=== PATIENT | female | born 2000 | race Hispanic/Latino ===

== ENCOUNTER 2025-05-27 15:12 | Day surgery (SDC) | payer OTHER ==
[~2025-05-27 15:12] MED LIST: Bupivacaine HCl 0.5%/Epinephrine 1:200,000/PF 30 ml Vial ONE
[2025-05-27] MEDS ORDERED: hydrALAZINE 20 MG/ML VIAL SLOW IVP PRN (15:29)
[2025-05-27] MEDS ORDERED: Ondansetron PF 4 MG/2 ML Vial IVP PRN ×2 (15:29→18:14)
[2025-05-27] MEDS ORDERED: Oxytocin 30 units/NS 500 ML 500 ML IV SCH (15:30)
[2025-05-27 16:05] VITALS: BMI 25.8
[2025-05-27 16:34] LABS: Hematocrit 34.6 % (34.9-44.5); Hemoglobin 12.0 g/dL (12.0-15.5); Mean Corpuscular Hemoglobin 30.4 pg (27.0-33.0); Mean Corpuscular Volume 87.6 fL (81.6-98.3); Platelet Count 306 10x3/uL (150-450); Red Blood Cell (RBC) Count 3.95 10x6/uL (3.90-5.03); White Blood Cell (WBC) Count 8.24 10x3/uL (3.5-10.5)
[2025-05-27 17:11] LABS: Hep B Surf Ag - L&D Non-Reactive S/CO (NonReactive)
[2025-05-27 17:12] LABS: Syphilis Antibody Index 0.05 S/CO (<1.00 Non-Reactive)
[2025-05-27] MEDS ORDERED: Lidocaine 2% MPF 10 ML AMP (For Epidural Use) ONE (17:52)
[2025-05-27] MEDS ORDERED: diphenhydrAMINE 50 MG/ML VIAL IVP PRN (18:14)
[2025-05-27] MEDS ORDERED: Acetaminophen 325 MG TAB PO PRN (18:14)
[2025-05-27] MEDS ORDERED: Communication Order-Pharmacy FS SCH (18:15)
== END 2025-05-27 23:10 | disposition home or self-care (01) ==
LOC: CSHLD/OP 15:12
PROVIDERS: ATTEND Family Medicine
PROC: 10S0XZZ Reposition Products of Conception, External Approach (ICD-10-PCS; principal; 2025-05-27)
DX: O32.1XX0 Maternal care for breech presentation, not applicable or unspecified (principal); Z3A.37 37 weeks gestation of pregnancy
CPT/HCPCS: 36415; 51702; 59412; 85027; 86780; 86850; 86900; 86901; 87340; 99285; J3105

== ENCOUNTER 2025-06-15 05:29 | Inpatient (IN) | payer OTHER ==
[2025-06-15 05:53] VITALS: BMI 25.5
[2025-06-15 06:38] LABS: Fetal Membranes Rupture No Membranes Rupture (No Rupture)
[2025-06-15] MEDS ORDERED: Oxytocin 30 units/NS 500 ML 500 ML IV SCH (07:45)
[2025-06-15] MEDS ORDERED: Ondansetron PF 4 MG/2 ML Vial IVP PRN ×3 (07:45→15:04)
[2025-06-15] MEDS ORDERED: Carboprost 250 MCG/ML AMP IM PRN (07:45)
[2025-06-15] MEDS ORDERED: Diphenoxylate HCl/Atropine Tablet PO PRN (07:45)
[2025-06-15] MEDS ORDERED: Acetaminophen 500 MG TAB PO PRN (07:45)
[2025-06-15] MEDS ORDERED: Methylergonovine 0.2 MG/ML VIAL IM PRN (07:45)
[2025-06-15] MEDS ORDERED: hydrALAZINE 20 MG/ML VIAL SLOW IVP PRN ×2 (07:45→15:04)
[2025-06-15] MEDS ORDERED: Tranexamic Acid 1,000 MG/10 ML VIAL IVP PRN (07:45)
[2025-06-15] MEDS ORDERED: Lidocaine 1% (PF) 30 ML VIAL SC PRN (07:45)
[2025-06-15 08:12] LABS: Hematocrit 34.3 % (34.9-44.5); Hemoglobin 11.7 g/dL (12.0-15.5); Mean Corpuscular Hemoglobin 29.7 pg (27.0-33.0); Mean Corpuscular Volume 87.1 fL (81.6-98.3); Platelet Count 327 10x3/uL (150-450); Red Blood Cell (RBC) Count 3.94 10x6/uL (3.90-5.03); White Blood Cell (WBC) Count 8.12 10x3/uL (3.5-10.5)
[2025-06-15 08:31] LABS: Syphilis Antibody Index 0.04 S/CO (<1.00 Non-Reactive)
[2025-06-15 08:33] LABS: Hep B Surf Ag - L&D Non-Reactive S/CO (NonReactive)
[2025-06-15] MEDS: fentaNYL/Ropivacaine Epidural 100 ML ONE (08:43)
[2025-06-15] MEDS ORDERED: Acetaminophen 325 MG TAB PO PRN (08:52)
[2025-06-15] MEDS ORDERED: diphenhydrAMINE 50 MG/ML VIAL IVP PRN (08:52)
[2025-06-15] MEDS ORDERED: NO NARCS FOR 12 HOURS FS PRN (09:00)
[2025-06-15] MEDS ORDERED: fentaNYL 2 mcg/Ropivacaine 0.2% Epidural 100 ML CADD EPIDURAL SCH (09:00)
[2025-06-15] MEDS: Oxytocin 30 units/NS 500 ML 500 ML IV SCH (10:33)
[2025-06-15] MEDS ORDERED: Milk Of Magnesia 30 ML UDCUP PO PRN (15:04)
[2025-06-15] MEDS ORDERED: Lanolin Ointment 7 GM TUBE TOP PRN (15:04)
[2025-06-15] MEDS ORDERED: diphenhydrAMINE 25 MG CAP PO PRN (15:04)
[2025-06-15] MEDS ORDERED: Bisacodyl 10 MG SUPP PR PRN (15:04)
[2025-06-15] MEDS: Boostrix 0.5 ML (Tdap) VIAL (>/=7 yrs of age) IM ONE (15:11)
[2025-06-15] MEDS: Ferrous Sulfate 325 MG TAB PO SCH (15:11)
[2025-06-15] MEDS: Ibuprofen 800 MG TAB PO SCH (15:15)
[2025-06-15] MEDS: Benzocaine-Menthol 82.5 ML CAN TOP PRN (15:15)
[2025-06-15] MEDS: HYDROcodone/Acetaminophen 5/325 mg Tablet PO PRN (20:11)
[2025-06-16] MEDS ORDERED: Simethicone Chewable 80 MG TAB PO PRN (18:52)
[2025-06-17 07:24] VITALS: BP 116/62; TEMP 97.4
== END 2025-06-17 11:34 | disposition home or self-care (01) | DRG 807 ==
LOC: CSHLD/OP 05:29 → CSHLD 06:22 → CSHPED 14:57
PROVIDERS: ADMIT Family Medicine; ATTEND Family Medicine
DX: O48.0 Post-term pregnancy (principal); Z37.0 Single live birth; O71.82 Other specified trauma to perineum and vulva; Z3A.40 40 weeks gestation of pregnancy
CPT/HCPCS: 51702; 84112; 85027; 86780; 86850; 86900; 86901; 87340; 99285; J2590; J7120